=== PATIENT | female | born 1965 | race African-American/Black ===

== ENCOUNTER → 2017-08-10 | Outpatient (CLI) | payer BC ==
[~2017-08-10] MED LIST: EZET10 PO; METF500T PO; METO50TA PO; PANT40TA3 PO; TRIA37.5 PO
== END ==
LOC: CPRE 11:55
PROVIDERS: ATTEND Obstetrics & Gynecology
DX: Z01.812 Encounter for preprocedural laboratory examination (principal)

== ENCOUNTER → 2017-08-18 | Day surgery (SDC) | payer BC ==
[~2017-08-18] VITALS: Ht 165.1 cm; Wt 120.7 kg
[~2017-08-18] MED LIST changes: +ACETAMINOPHEN/HYDROcodone 325 MG/5 MG TAB PO PRN; +APREPITANT 40 MG CAP PO PRN; +BUPIVACAINE HCL PF 0.25% 30 ML VIAL ONE; +CHLORHEXIDINE GLUCONATE 2 % 1 PACK (2 CLOTHS) TOPICAL PRN; +DO NOT ADM ANY ANTICOAGULANT DRUGS PRN; +DOCUSATE SODIUM 100 MG CAP PO SCH; +GLYCOPYRROLATE 1 MG/5 ML SYRINGE IV PUSH ONE; +HYDROmorphone HCL PF 1 MG/ML VIAL ONE; +HYDROmorphone HCL PF 2 MG/ML VIAL IV PUSH PRN; +IBUPROFEN 600 MG TAB PO PRN; +KETOROLAC TROMETHAMINE 30 MG/ML (IVP) VIAL IVP PRN; +LACTATED RINGER'S 1000 ML INJ 1,000 ML IV ONE; +LACTATED RINGER'S 1000 ML INJ 1,000 ML IV SCH; +LACTATED RINGER'S 1000 ML IV PRN; +LIDOCAINE HCL 1% PF 5 ML SYRINGE OTHER ONE; +METOPROLOL TARTRATE 25 MG TAB PO PRN; +MIDAZOLAM HCL 2 MG/2 ML VIAL IV ONE; +NEOSTIGMINE 5 MG/5 ML SYRINGE IV PUSH ONE; +ONDANSETRON HCL 4 MG/2 ML VIAL IV PUSH ONE; +ONDANSETRON HCL 4 MG/2 ML VIAL IVP PRN; +PHENYLEPH/NS 1000 MCG/10 ML SYR IV ONE; +POVIDONE IODINE 5% (ANTISEPSIS KIT) 4 APPLICATIONS EACH NARE PRN; +PROMETHAZINE INJ 25 MG/ML VIAL IM PRN; +PROPOFOL 200 MG/20 ML AMP IV ONE; +ROCURONIUM INJ 50 MG/5 ML SYRINGE IV PUSH ONE; +SODIUM CHLORID 0.9% 500 ML IV PRN; +SODIUM CHLORIDE 0.9% FLUSH 10 ML FLUSH IV FLUSH PRN; +SODIUM CHLORIDE 0.9% FLUSH 10 ML FLUSH IV FLUSH SCH; +ceFAZolin 2 GM PREMIX 50 ML IV SCH; +diphenhydrAMINE HCL 25 MG CAP PO PRN
[2017-08-18 14:31] VITALS: BP 106/68; PULSE 91; RESP 18; TEMP 97.6; O2SAT 96
--- NOTE | 2017-08-18 14:58 | EKG ---
Date Performed: 08/18/2017 Time Performed: 07:37:06 PTAGE: 52 years EKG: Sinus rhythm NORMAL ECG PREVIOUS TRACING : 02/19/1998 14.40 DOCTOR: Aidan Douglas Interpretating Date/Time 08/18/2017 14:58:09
--- NOTE | 2017-08-19 06:34 | MP ---
cc: AIDAN ESPARZA M.D., TINA G. DATE OF SURGERY 08/18/2017 DATE OF 1965 PREOPERATIVE DIAGNOSES Patient with symptomatic bilateral pelvic mass, complex cyst of the left adnexa, smaller simple cyst of the right adnexa. Previous pelvic surgery, hysterectomy. Chronic pelvic pain. PROCEDURE Laparoscopic robotic-assisted bilateral salpingectomy with extensive lysis of adhesions. POSTOPERATIVE DIAGNOSES Patient with symptomatic bilateral pelvic mass, complex cyst of the left adnexa, smaller simple cyst of the right adnexa. Previous pelvic surgery, hysterectomy. Chronic pelvic pain. SURGEON MD Mati ANESTHESIA General with endotracheal intubation. ESTIMATED BLOOD LOSS 75 cc. DRAINS Munoz to gravity. OPERATIVE FINDINGS The patient had extensive adhesions involving the omentum and the rectosigmoid. The patient had a large clear cyst of the left fallopian tube and a smaller clear cyst of the right fallopian tube and right ovary. There was no peritoneal disease. There was no element of malignancy. Both ovaries appeared normal. There was evidence of endometriosis, prior endometriosis on the left sidewall. INDICATIONS FOR PROCEDURE Patient with chronic pelvic pain, right hip pain, not responsive to conservative therapy. Imaging studies revealed bilateral cystic masses of the ovaries. The patient elected for surgical intervention, bilateral salpingectomy by laparoscopy, possible laparotomy and was consented for. The patient received Ancef 2 grams prophylactically. PROCEDURE The patient was taken to the operating room in stable condition, underwent general anesthesia with endotracheal intubation. She was carefully positioned in dorsal lithotomy position using Jam stirrups on the lower extremities for VTE prophylaxis. She was prepped and draped. Munoz catheter was inserted by sterile technique. After she was prepped and draped, a time-out was conducted agreed by on all present in the room. The patient was then examined. The findings were as described above. She had multiple scars over the abdomen secondary to previous surgery, all well-healed with no herniation. Due to the extensive adhesions, the entry port was chosen in the left upper quadrant. Veress needle was inserted into the peritoneal cavity without complication. The incision site was injected with 0.25% plain Marcaine. Two liters of CO2 were insufflated at low pressure. A 5-mm visible port trocar was then inserted through the left upper quadrant and direct entry into the perineal cavity was accomplished without difficulty. On examination the abdominal findings showed the patient had omental adhesions anteriorly. The accessory ports were placed using 8-mm trocars on the right and left through previous laparoscopic scars and then a combination of cold and hot scissors were used to take down the omental adhesions. Once this was complete the umbilical port was placed using a 12-mm disposable trocar. The da [facility] patient cart was side docked, #2 arm on the left, #1 arm on the right. Monopolar scissors were in arm #2, bipolar fenestrated grasper in the #1, 0-degree lens on the camera was noted. There was no collision. Attention was directed to the surgeon cart where visualization of the anatomy was made. Dissection of the left adnexa was accomplished by meticulous dissection off the sidewall, opening the retroperitoneal space, identifying the ureter and then isolating the infundibular pelvic vessels and securing them hemostatically. This allowed resection of the mass without difficulty. It was placed in a dependent position in the left colic gutter. Then attention was directed to the right adnexal structures where the anatomy was defined. The retroperitoneal space was opened and then dissecting the cyst away from the sidewall allowing removal of the tube and ovary completely. Vessels were hemostatic. Again the ureter was visualized and out of the operative field. Once specimens were secured, the [facility] patient cart was undocked. Straight laparoscopy was used and retrieval of the specimens made using the EndoCatch bag through the 12-mm trocar and then pulling it through the umbilical port. They were both set in formalin. The pelvis was then irrigated with copious normal saline. There was no active bleeding or hematoma. The raw surface of the right sidewall was covered with Surgicel for hemostasis postoperatively. Observation off pressure showed no obvious bleeding or hematoma. Once the this was complete the umbilical port was closed with interrupted suture of 0 Vicryl using a crossbow device and then once this was complete the pneumoperitoneum was decompressed allowing closure of the trocar sites with a subcuticular stitch of 4-0 Monocryl, Steri-Strips and Band-Aids. The Munoz catheter was removed under sterile technique. At the end of the case final count was correct. The patient was stable. She was taken to the recovery room on room air. Aidan Esparza MD SJPavel/SSB /12:26 PM /6:00 AM
== END | disposition home or self-care (01) ==
LOC: HSDC 05:53
PROVIDERS: ATTEND Obstetrics & Gynecology
DX: D27.1 Benign neoplasm of left ovary (principal); D27.0 Benign neoplasm of right ovary; N70.11 Chronic salpingitis; N73.6 Female pelvic peritoneal adhesions (postinfective); I48.91 Unspecified atrial fibrillation; I10 Essential (primary) hypertension
CPT/HCPCS: 00840; 58661; 86850; 86900; 86901; 88307; 93005; J0690; J1170; J1885; J2250; J2370; J2405; J2710; J3010; J7120; J8501; 88305